=== PATIENT | female | born 1990 | race Caucasian/White ===

== ENCOUNTER → 2018-10-05 | Outpatient (CLI) | payer BC ==
[~2018-10-05] MED LIST: ACYCLOVIR 200200 MG
[2018-10-05 17:09] VITALS: BP 105/64
--- NOTE | 2018-10-05 17:14 | NUR ---
IN FOR DEHYDRATION/GERD S/P GASTRIC SLEEVE 09/26/18. PATIENT STATED ABLE TO DRINK SMALL AMOUNTS BUT UNABLE TO DRINK PROTEIN SHAKES AND HER URINE IS DARK. INFUSED 1 LITER NS OVER 1 HOUR AND TOLERATED WELL. PATIENT'S SON HAD A CONCERT AT 6 PM TODAY. SCHEDULED TO RETURN IN THE MORNING FOR BANANA BAG. REMOVED IV AND DISMISSED IN STABLE CONDITION.
== END ==
LOC: OPONC 14:19
DX: E86.0 Dehydration (principal); K21.9 Gastro-esophageal reflux disease without esophagitis
CPT/HCPCS: 95000

== ENCOUNTER → 2018-10-06 | Outpatient (CLI) | payer BC ==
[2018-10-06 08:40] VITALS: BP 103/50
--- NOTE | 2018-10-06 11:40 | NUR ---
RETURNED TODAY FOR THE BANANA BAG PT WAS UNABLE TO STAY LATE YESTERDAY TO COMPLETE IV THERAPY. STATES SHE FELT BETTER POST NORMAL SALINE, EVEN GERD WAS BETTER. HAS NOT BEEN ABLE TO SMELLER THE SCRIPT FOR THE GERD MED PENDING INSURANCE APPROVAL. PT NOTIFIED PHILIP IN THE OFFICE TO SEE IF SHE CAN FACILITATE INSURANCE APPROVAL. PT NOTED THAT URINE INITIALLY LIGHTENED IN COLOR YESTRDAY BUT BECOMING A DARKER YELLOW AGAIN THIS AM. CALLED THE OFFICE TO SEE IF PT COULD HAVE AN ADDITIONAL LITER OF NORMAL SALINE, ESPECIALLY SINCE WE ARE HEADING INTO THE WEEKEND. ORDER RECEIVED. BANANA BAG STARTED AT 0845 THEN NORMAL SALINE ADDED AT 1010 AND COMPLETED AT 1140. PT TOLERATED ALL WELL. DISMISSED IN STABLE CONDITION.
== END ==
LOC: OPONC 06:23
DX: E86.0 Dehydration (principal); K21.9 Gastro-esophageal reflux disease without esophagitis
CPT/HCPCS: 95000; 95001

== ENCOUNTER → 2018-10-17 | Outpatient (CLI) | payer BC ==
[2018-10-17 14:44] VITALS: BP 108/58
== END ==
LOC: OPONC 14:13
DX: E86.0 Dehydration (principal)

== ENCOUNTER → 2018-12-27 | Outpatient (CLI) | payer BC ==
[2018-12-27 14:00] VITALS: BP 89/50
--- NOTE | 2018-12-27 14:15 | NUR ---
RECEIVED ORDER FROM DR. DOW'S OFFICE TO GIVE ONE LITER OF FLUIDS AFTER PT'S UGI TODAY WHICH WAS DONE. PT DENIES PAIN BUT STATES OVER THE LAST FEW DAYS SHE HAS IMMEDIATELY VOMITED AFTER EATING HER MEALS. OTHER THAN THAT, STATES HAS BEEN FEELNIG WELL. FLUIDS GIVEN WITHOUT INCIDENT. BP LOW POST. CALLED OFFICE AND SPOKE WITH LORETO ART, WHO STATES OK TO DISMISS. DR. DOW WILL F/U WITH PT AFTER REVIEWING THE UGI. PT AGREEABLE. DENIES FEELING SYMPTOMATIC WITH LOW BP. DISMISSED IN STABLE CONDITION.
== END | disposition home or self-care (01) ==
LOC: RAD 11:47
DX: K21.9 Gastro-esophageal reflux disease without esophagitis (principal); Z98.84 Bariatric surgery status